=== PATIENT | male | born 1975 | race Caucasian/White ===

== ENCOUNTER 2019-10-22 11:51 | Outpatient (CLI) | payer MEDICAID ==
[~2019-10-22] VITALS: Ht 167.6 cm; Wt 78.9 kg
[2019-10-22] MEDS ORDERED: IV NS 0.9% 250 ML IV ONE ×2 (12:00→12:01)
[2019-10-22] MEDS ORDERED: IOHEXOL-350 100 ML VIAL IV ONE ×2 (12:00→12:01)
[2019-10-22] MEDS ORDERED: NITROGLYCERIN 0.4 MG/TAB BOTTLE ONE (12:24)
[2019-10-22] MEDS ORDERED: NITROGLYCERIN 0.4 MG/TAB BOTTLE SL ONE (12:30)
[2019-10-22] MEDS ORDERED: METOPROLOL TARTRATE INJ 5 MG/5 ML AMPUL IVP PRN (12:30)
[2019-10-22] MEDS ORDERED: METOPROLOL TARTRATE INJ 5 MG/5 ML AMPUL ONE (12:30)
[2019-10-22 12:58] VITALS: BP 114/80
--- NOTE | 2019-10-22 12:59 | NUR ---
RN NOTES/SP CTA PATIENT BROUGHT TO UNIT VIA WHEELCHAIR @ 1255 ACCOMPANIED BT RN MARISA. PT IS A/O 4 AND ABLE TO MAKE NEEDS KNOWN , DENIES PAIN OR ANY DISCOMFORTS. ORIENTED TO UNIT AND STAFF. IV ACCESS NOTED ON RAC G#20 INTACT , PATENT FLUSHES WELL. PT S/P CTA OF THE HEART W/ 3D IMAGE. V/S CHECKED: BP 114/80, P 55, R 18, T 98.7 AND SP02 1005 ON ROOM AIR. WILL CONTINUE TPO MONITOR.
[2019-10-22 13:13] VITALS: BP 111/61
[2019-10-22 13:28] VITALS: BP 108/61
[2019-10-22 13:43] VITALS: BP 106/69
[2019-10-22 14:35] VITALS: BP 105/65
--- NOTE | 2019-10-22 14:45 | NUR ---
RN NOTES PATIENT IS A//O X4, [place]BANIAN SPEAKING AND AMBULATORY WITH STEADY GAIT. PT PICKED-UP AND TRANSPORTED BACK TO [facility] AT 1440 ACCOMPANIED BY 2 PARAMEDICS. PT IS STABLE AND V/S WNL. RESULTS OF CTA HANDED TO PARAMEDICS. CHARGE NURSE RAFIQ MUNOZ. .
== END 2019-10-22 23:59 | disposition home or self-care (01) ==
LOC: RAD 11:51
PROVIDERS: ATTEND Internal Medicine Cardiovascular Disease
DX: I25.10 Atherosclerotic heart disease of native coronary artery without angina pectoris (principal)
CPT/HCPCS: 75574; J7050 ×2; Q9967; J3490